=== PATIENT | male | born 1985 | race Caucasian/White ===

== ENCOUNTER 2022-02-25 15:32 | Emergency (ER) | payer SELFPAY ==
[~2022-02-25] VITALS: Ht 170 cm; Wt 57.0 kg
[2022-02-25] MEDS ORDERED: NS IV 1000 ML 1,000 ML ONE (15:39)
--- NOTE | 2022-02-25 15:50 | ED General ---
General Chief Complaint: Neurological Problems Stated Complaint: SOB/DIZZY Source of Information: Patient Exam Limitations: No Limitations History of Present Illness Date Seen by Provider: Feb 25, 2022 Time Seen by Provider: 15:48 Initial Comments This is a 36-year-old male who presented to the ER via bicycle with complaints of generalized not feeling well, and multiple seizures throughout the day. States that he currently lives in the [facility] with his girlfriend of 8 years and has been riding around on his bicycle all day trying to find her. States she was admitted to this hospital last night and he was riding his bicycle to see her, and when he arrived he was very short of breath and dizzy. States he does have a history of seizure disorder but he has not taken anything for "quite a while"., He does not recall what he was prescribed in the past. He does have a history of drug abuse, but states that he has not used any drugs in several months. He does have new IV marcus in his left AC space. Allergies and Home Medications Allergies Coded Allergies: Penicillins (Verified Allergy, Unknown, 02/25/22) Patient Home Medication List Home Medication List Reviewed: Yes Discontinued Medications Hydrocodone/Acetaminophen (Hydrocodone-Acetamin 5-325 mg) 5 Mg-325 Mg Tablet, 1 TAB PO Q6H PRN for PAIN-MODERATE (5-7) Prescribed by: NOELLE TINSLEY on 02/25/22 1711 Review of Systems Review of Systems Constitutional: chills, dizziness, malaise, weakness EENTM: no symptoms reported Respiratory: No cough; dyspnea on exertion, short of breath Cardiovascular: No chest pain; syncope Gastrointestinal: no symptoms reported Genitourinary: no symptoms reported Musculoskeletal: no symptoms reported Skin: no symptoms reported Psychiatric/Neurological: Seizure Hematologic/Lymphatic: No Symptoms Reported Immunological/Allergic: no symptoms reported Physical Exam Vital Signs Vital Signs - First Documented 02/25/22 15:41 Temp 36.6 Pulse 89 Resp 20 B/P (MAP) 121/79 (93) Pulse Ox 98 O2 Delivery Room Air Capillary Refill : Height, Weight, BMI Height: '" Weight: lbs. oz. kg; BMI Method: General Appearance: No Apparent Distress, WD/WN Eyes: Bilateral Eye Normal Inspection, Bilateral Eye PERRL, Bilateral Eye EOMI HEENT: PERRL/EOMI, TMs Normal, Normal ENT Inspection, Pharynx Normal Neck: Full Range of Motion, Normal Inspection, Supple Respiratory: Lungs Clear, Normal Breath Sounds, No Accessory Muscle Use, No Res piratory Distress Cardiovascular: Regular Rate, Rhythm, No Murmur Gastrointestinal: Normal Bowel Sounds, Non Tender, Soft Back: Normal Inspection, No Vertebral Tenderness Extremity: Normal Capillary Refill, Normal Inspection, Normal Range of Motion, Non Tender Neurologic/Psychiatric: Alert, Oriented x3, No Motor/Sensory Deficits, explosive ordnance technician II- XII Norm as Tested (grossly intact ), Depressed Affect Skin: Normal Color, Warm/Dry Progress/Results/Core Measures Suspected Sepsis SIRS Temperature: Pulse: Respiratory Rate: Laboratory Tests 02/25/22 15:47: White Blood Count 4.8 Blood Pressure / Mean: Laboratory Tests 02/25/22 15:47: Creatinine 1.09, Platelet Count 190, Total Bilirubin 0.6 Results/Orders Lab Results Laboratory Tests Test 02/25/22 15:47 Range/Units White Blood Count 4.8 4.3-11.0 10^3/uL Red Blood Count 4.46 4.30-5.52 10^6/uL Hemoglobin 13.6 13.3-17.7 g/dL Hematocrit 39 L 40-54 % Mean Corpuscular Volume 88 80-99 fL Mean Corpuscular Hemoglobin 31 25-34 pg Mean Corpuscular Hemoglobin Concent 35 32-36 g/dL Red Cell Distribution Width 12.8 10.0-14.5 % Platelet Count 190 130-400 10^3/uL Mean Platelet Volume 9.4 9.0-12.2 fL Immature Granulocyte % (Auto) 0 % Neutrophils (%) (Auto) 57 42-75 % Lymphocytes (%) (Auto) 32 12-44 % Monocytes (%) (Auto) 10 0-12 % Eosinophils (%) (Auto) 0 0-10 % Basophils (%) (Auto) 1 0-10 % Neutrophils # (Auto) 2.8 1.8-7.8 10^3/uL Lymphocytes # (Auto) 1.5 1.0-4.0 10^3/uL Monocytes # (Auto) 0.5 0.0-1.0 10^3/uL Eosinophils # (Auto) 0.0 0.0-0.3 10^3/uL Basophils # (Auto) 0.0 0.0-0.1 10^3/uL Immature Granulocyte # (Auto) 0.0 0.0-0.1 10^3/uL Sodium Level 137 135-145 MMOL/L Potassium Level 3.7 3.6-5.0 MMOL/L Chloride Level 104 98-107 MMOL/L Carbon Dioxide Level 20 L 21-32 MMOL/L Anion Gap 13 5-14 MMOL/L Blood Urea Nitrogen 23 H 7-18 MG/DL Creatinine 1.09 0.60-1.30 MG/DL Estimat Glomerular Filtration Rate 91 BUN/Creatinine Ratio 21 Glucose Level 95 70-105 MG/DL Calcium Level 9.1 8.5-10.1 MG/DL Corrected Calcium 8.9 8.5-10.1 MG/DL Magnesium Level 2.1 1.6-2.4 MG/DL Total Bilirubin 0.6 0.1-1.0 MG/DL Aspartate Amino Transf (AST/SGOT) 47 H 5-34 U/L Alanine Aminotransferase (ALT/SGPT) 41 0-55 U/L Alkaline Phosphatase 71 40-136 U/L Total Creatine Kinase 286 H 30-200 U/L Total Protein 7.5 6.4-8.2 GM/DL Albumin 4.2 3.2-4.5 GM/DL Salicylates Level < 5.0 L 5.0-20.0 MG/DL Acetaminophen Level < 10 L 10-30 UG/ML Serum Alcohol < 10 <10 MG/DL My Orders Orders - NOELLE TINSLEY APRN Ed Iv/Invasive Line Start (02/25/22 15:39) Ekg Tracing (02/25/22 15:39) Continuous Ekg Monitoring (02/25/22 15:39) Ns Iv 1000 Ml (Sodium Chloride 0.9%) (02/25/22 16:30) Ed Iv/Invasive Line Start (02/25/22 16:53) Ns Iv 1000 Ml (Sodium Chloride 0.9%) (02/25/22 17:00) Medications Given in ED Current Medications Medications Dose Ordered Sig/Kai Route Start Time Stop Time Status Last Admin Dose Admin Sodium Chloride 1,000 ml @ ud STK-MED ONCE .ROUTE 02/25/22 15:39 02/25/22 15:41 DC 02/25/22 15:48 1,000 MLS/HR Vital Signs/I&O 02/25/22 02/25/22 15:41 18:32 Temp 36.6 Pulse 89 89 Resp 20 19 B/P (MAP) 121/79 (93) 118/89 Pulse Ox 98 100 O2 Delivery Room Air 02/26/22 00:00 Intake Total 2000 ml Balance 2000 ml Capillary Refill : Progress Note : Progress Note While taking into the emergency department the patient was very tachypneic and while sitting in the registration chair he contractured and had a syncopal episode, he was lowered to the floor and was assisted onto a bed and brought back to exam room 10. Once he was back in exam room he is awake and alert states that he is currently homeless and lives in the [facility], he has been riding his bicycle around [facility] all day trying to find his girlfriend whom he just found out was admitted to this hospital last night. States he has not eaten or drink anything today. 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 He is noted to have new IV marcus on his inner AC space. Orders placed for basic labs, urine drug screen,CK. We will go ahead and give a liter of normal saline as he appears to have some heat exhaustion. Labs are relatively unremarkable he has a slightly elevated CK level. Orders placed for second liter of normal saline, he is awake and alert, no longer experiencing any shortness of breath. He was provided with a lunch tray which he ate without difficulty. States he was beginning to feel much better. He was discharged from the emergency department, stable condition. He went upstairs to visit with his girlfriend. ECG Initial ECG Impression Date: Feb 25, 2022 Initial ECG Impression Time: 15:41 Initial ECG Rate: 93 Initial ECG Rhythm: Normal Sinus Initial ECG Intervals: Normal Initial ECG Impression: Normal Initial ECG Comparisson: No Previous ECG Available Departure Impression Primary Impression: Heat exhaustion Disposition: 01 HOME, SELF-CARE Condition: Improved Departure-Patient Inst. Decision time for Depature: 17:06 Referrals: BASIL GUZMÁN V DO Patient Instructions: Heat Exhaustion and Heat Stroke (DC), Heat Illness ED Add. Discharge Instructions: Plan: 1. Avoid staying out in the heat for long periods of time. Make sure you have shade or a cool place to stay during the hottest part of the day. 2. Make sure you are drinking plenty of water to stay hydrated. 3. Immediately get out of the heat if you stop sweating, become nauseated, headache, muscle aches, or any other new or concerning symptoms. 4. Establish with a primary care provider to establish care and NOELLE TINSLEY [employer] DISTRIBUTOR Feb 25, 2022 15:50
[2022-02-25 15:56] LABS: BASOPHILS % (AUTO) 1 % (0-10); EOSINOPHILS % (AUTO) 0 % (0-10); HEMATOCRIT 39 % (40-54); HEMOGLOBIN 13.6 g/dL (13.3-17.7); LYMPHOCYTES # (AUTO) 1.5 10^3/uL (1.0-4.0); LYMPHOCYTES % (AUTO) 32 % (12-44); MEAN CORPUSCULAR HEMOGLOBIN 31 pg (25-34); MEAN CORPUSCULAR HGB CONC 35 g/dL (32-36); MEAN CORPUSCULAR VOLUME 88 fL (80-99); MEAN PLATELET VOLUME 9.4 fL (9.0-12.2); MONOCYTES # (AUTO) 0.5 10^3/uL (0.0-1.0); MONOCYTES % (AUTO) 10 % (0-12); NEUTROPHILS # (AUTO) 2.8 10^3/uL (1.8-7.8); NEUTROPHILS % (AUTO) 57 % (42-75); PLATELET COUNT 190 10^3/uL (130-400); WHITE BLOOD COUNT 4.8 10^3/uL (4.3-11.0)
[2022-02-25 16:05] LABS: ALBUMIN 4.2 GM/DL (3.2-4.5); CHLORIDE 104 MMOL/L (98-107); POTASSIUM 3.7 MMOL/L (3.6-5.0); SODIUM 137 MMOL/L (135-145)
[2022-02-25 16:07] LABS: CALCIUM 9.1 MG/DL (8.5-10.1)
[2022-02-25 16:08] LABS: GLUCOSE 95 MG/DL (70-105); TOTAL PROTEIN 7.5 GM/DL (6.4-8.2)
[2022-02-25 16:09] LABS: CARBON DIOXIDE 20 MMOL/L (21-32)
[2022-02-25 16:10] LABS: BILIRUBIN,TOTAL 0.6 MG/DL (0.1-1.0)
[2022-02-25 16:12] LABS: ALKALINE PHOSPHATASE 71 U/L (40-136); CREATININE SERUM 1.09 MG/DL (0.60-1.30); GFR ESTIMATED 91
[2022-02-25 16:13] LABS: BUN/CREATININE RATIO 21
[2022-02-25 16:14] LABS: SALICYLATE < 5.0 MG/DL (5.0-20.0)
[2022-02-25 16:15] LABS: ALANINE AMINOTRANSFERASE 41 U/L (0-55); CREATINE KINASE 286 U/L (30-200); MAGNESIUM 2.1 MG/DL (1.6-2.4)
[2022-02-25] MEDS ORDERED: NS IV 1000 ML 1,000 ML IV ONE (16:30)
[2022-02-25 16:36] LABS: ACETAMINOPHEN < 10 UG/ML (10-30)
[2022-02-25] MEDS ORDERED: NS IV 1000 ML 1,000 ML IV SCH (17:00)
[2022-02-25] MEDS ORDERED: ACHD5005 PO (17:11)
[2022-02-25 18:32] VITALS: BP 118/89
== END 2022-02-25 18:41 | disposition home or self-care (01) ==
LOC: EDBD 15:35 → ER 15:35
DX: T67.5XXA Heat exhaustion, unspecified, initial encounter (principal); R74.8 Abnormal levels of other serum enzymes; X30.XXXA Exposure to excessive natural heat, initial encounter
CPT/HCPCS: 80053; 82550; 83735; 85025; 93005; 99284; G0480 ×3; 36415; 80320; 80329